=== PATIENT | female | born 1925 | race Caucasian/White ===

== ENCOUNTER 2016-10-11 10:56 | Inpatient (IN) | payer MEDICARE ==
[~2016-10-11] VITALS: Ht 160 cm; Wt 46.1 kg
[~2016-10-11 10:56] MED LIST: /ESOM40CA OR; /WARF25TA OR; ACET65TA OR; ADV250INH INH; ARTI99.0 OU; ARTISOL10 OU; ASPI1TAB PO; ASPI81TA85 PO; B 12 INJECTION PO; BIOT10005 PO; CALCTAB93 PO; CALTTAB10 PO; CART120C PO; CELE10TA PO; DOXY100C PO; DRIS50002 PO; FEXO60CA PO; FISH1000 PO; HYDR12.55 PO; LEVO125T3 PO; LEVO500T32 PO; LOSA100T36 PO; META28.35 PO; MOME50SP; MOME50SP2; NETI1KIT; NEXIUM 40 MG PO; OCUVITE PO; OCUVTAB PO; OMEP40CA2 PO; OYST500T OR; PERC5TAB8 OR; PRED20TA PO; PRESCAP4 PO; PRESCAP6 PO; REST0.05 OU; SIMB1SUS OS; SYNTHROID PO; SYSTSOL11 OU; TRAV0.006 OP; TRAV0.006 OU; TRAV04OPD OU; TRAVATAN OD; TYLE325T5 PO; VITA100027 OR; VITA100066 PO; VITA100072 PO; VITA400T13 PO; VITAMIN D50000 UNT OR; ZOFR20TA PO; occuvite OR; travatan OU
[2016-10-11] MEDS ORDERED: FISH100049 PO (11:28)
[2016-10-11] MEDS ORDERED: SIMB1SUS OU (11:28)
[2016-10-11] MEDS ORDERED: OCUVTAB PO (11:28)
[2016-10-11] MEDS ORDERED: TORS20TA2 PO (11:28)
[2016-10-11] MEDS ORDERED: TRAV04OPD OU (11:28)
--- NOTE | 2016-10-11 11:48 | REP ---
Clinical: Syncope. Comparison: 04/29/2016 . Findings: There is a scalp hematoma overlies the left frontal bone. There is partial opacification and fluid in the right maxillary sinus along with emphysema in the right magento web developer space consistent with trauma. Subtle nondisplaced fracture along the right lateral orbital wall is suggested. Age-related atrophy and microvascular ischemic changes are appreciated. The ventricles and sulci are symmetric. Maya-white differentiation is maintained. There is no evidence for acute intracranial hemorrhage, mass/mass effect, pathology or infarction. No extra-axial fluid collection. Calvarium is intact. Impression: 1. Left frontal scalp hematoma and post traumatic changes involving the right side of the face including fluid, emphysema, and possible nondisplaced acute fracture involving the right lateral orbital wall. 2. Age related atrophy and microvascular ischemic changes. 3. No acute intracranial hemorrhage, infarction, or mass/mass effect. Signed by Aron Bermudez MD 10/11/2016 11:40 A
--- NOTE | 2016-10-11 11:51 | REP ---
Clinical: Syncope . Technique: Axial noncontrast images from the skull base to the thoracic inlet with coronal and sagittal re-formations Findings: Age related osteopenia and advanced multilevel degenerative disc osteophyte complexes are noted. Normal alignment is maintained. Cervical vertebral bodies including transverse processes and spinous processes are intact and there is no evidence for acute fracture / compression injury or subluxation. Spinal canal is patent. Posterior elements are intact. Paravertebral soft tissues are normal. Impression: Osteopenia and multilevel degenerative changes. No acute fracture / compression injury or subluxation. Signed by Aron Bermudez MD 10/11/2016 11:43 A
[2016-10-11 12:20] LABS: BASO % 0.2 % (0.0-1.0); EOS % 0.4 % (0.0-3.0); LARGE UNSTAINED CELL # 0.1 K/mm3 (0.0-0.4); LARGE UNSTAINED CELL % 1.6 % (0.0-4.0); LYMPH # 0.7 K/mm3 (1.5-4.5); MEAN CORPUSCULAR HEMOGLOBIN 31.8 pg (27.0-33.0); MEAN CORPUSCULAR VOLUME 93.6 fl (80.0-96.0); MONO # 0.4 K/mm3 (0.0-0.8); MONO % 6.1 % (0.0-5.0); NEUTROPHILS # 5.5 K/mm3 (1.8-7.7); NEUTROPHILS % 81.7 % (36.0-66.0); PLATELET COUNT, AUTOMATED 312 k/mm3 (150-450); RED CELL DISTRIBUTION WIDTH 12.1 % (11.5-14.5); WHITE BLOOD COUNT 6.7 K/mm3 (4.0-10.0)
[2016-10-11 12:30] LABS: ANION GAP 8 MEQ/L (8-16); BLOOD UREA NITROGEN 15 MG/DL (7-18); CALCIUM LEVEL 8.1 MG/DL (8.8-10.2); CARBON DIOXIDE LEVEL 29 MEQ/L (21-32); CHLORIDE LEVEL 93 MEQ/L (98-107); CREATININE FOR GFR 0.71 MG/DL (0.55-1.02); GLOMERULAR FILTRATION RATE > 60.0 (>32); GLUCOSE, FASTING 99 MG/DL (83-110); MAGNESIUM LEVEL 1.9 MG/DL (1.8-2.4); POTASSIUM SERUM 4.1 MEQ/L (3.5-5.1); SODIUM LEVEL 130 MEQ/L (136-145)
--- NOTE | 2016-10-11 12:34 | REP ---
Clinical: Trauma. Technique: Axial images from the mid skull through the mandible with coronal and sagittal re-formations. Findings: Right facial and right periorbital traumatic infiltration and soft tissue swelling is appreciated. There is a moderate amount of fluid in the right maxillary sinus as well as emphysema in the right collar folder operator space. There is a nondisplaced fracture along the lateral wall of the right orbit as well as fractures involving the anterior and posterolateral kahn of the right maxillary sinus. The nasal bones, zygomatic arches, and mandible are intact. No other fracture or dislocation is appreciated. Mild traumatic proptosis to the right lobe is suggested without further orbital trauma/injury identified. There is a moderate scalp hematoma overlying the left frontal bone. No obvious intracranial trauma is identified on current images. Impression: Right facial traumatic infiltration. Left scalp hematoma. Fractures involving the lateral wall of the right orbit and anterior and posterolateral kahn of the right maxillary sinus with associated moderate traumatic fluid in the right maxillary sinus. Signed by Aron Bermudez MD 10/11/2016 12:26 P
--- NOTE | 2016-10-11 12:41 | REP ---
Clinical: Syncope. Trauma. Technique: Portable examination. Comparison: 05/24/2016. Findings: Mediastinum and cardiac silhouette are within normal limits. Lung platt demonstrate chronic stable changes. No acute consolidation, effusion, or pneumothorax. Skeletal structures demonstrate osteopenia and degenerative changes. Impression: Chronic stable changes. No acute cardiopulmonary process. Signed by Aron Bermudez MD 10/11/2016 12:33 P
[2016-10-11] MEDS ORDERED: ACETAMINOPHEN TAB 650MG DOSE (2X325MG) PO ONE (12:45)
[2016-10-11] MEDS ORDERED: META48.54 PO (14:11)
[2016-10-11] MEDS ORDERED: ONDANSETRON 4MG/2ML VIAL (J2405) IV PRN (14:45)
--- NOTE | 2016-10-11 14:58 | HPEPDOC ---
General Date of Admission 10/11/16 Chief Complaint The patient is a 89-year-old female admitted with a reason for visit of Head Injury; Unknown Loc. History of Present Illness 89-year-old female with past medical history of hypertension and hypothyroidism was brought to the ER by EMS after the patient had a syncopal episode at home. According to the patient, she was on the toilet having a bowel movement when she felt a sensation of nausea. She reports that she subsequently remembers falling to the floor. She denies any symptoms of chest pain, palpitations, abdominal pain, or any diaphoresis leading up to this moment. She states that when she woke up the EMS had arrived. At baseline, the patient states that she is functionally independent and able to complete all activities of daily living independently, as well as drive. She does note that she has been having 2-3 loose stools a day for the last 5 days, for which she took Imodium for. She otherwise denies any other focal complaints of fevers, chills, shortness of breath, cough, or any vomiting. In the ER, a CT scan of the head Revealed a left frontal scalp hematoma and post traumatic changes involving the right side of the face. Follow-up maxillofacial CT revealed fractures involving the lateral wall of the right orbital and anterior and posterolateral wall of the right maxillary sinus with moderate traumatic fluid in the right maxillary sinus. Dr. Garcia of ENT was contacted in the ER regarding these findings, and he has recommended that the patient follow-up in one week as an outpatient with ENT for further evaluation. At this time, the patient will be admitted to the hospitalist service under Dr. Tyson for further evaluation and management of syncope. Home Medications Scheduled (Preservision Areds 2) 1 Cap Cap 2 CAP PO DAILY (Reported) (Simbrinza 1-0.2 %) 1 Jazlyn Jazlyn 1 JAZLYN OU BID (Reported) Aspirin (Aspirin 81) 81 Mg Tab 81 MG PO DAILY (Reported) Cholecalciferol (Vitamin D) 1,000 Unit Tab 2,000 UNIT PO DAILY (Reported) Cyanocobalamin (Vitamin B12) 1,000 Mcg Tab 1,000 MCG PO DAILY (Reported) Fish Oil (Fish Oil 1000 mg) 1 Cap Cap 1 CAP PO DAILY (Reported) Levothyroxine Sodium (Synthroid) 125 Mcg Tab 125 MCG PO 6XWK (Reported) TAKES EVERYDAY EXCEPT SUNDAYS Losartan Potassium (Losartan Potassium) 100 Mg Tab 100 MG PO DAILY (Reported) Mometasone Furoate Monohydrate (Nasonex) 120 [place]/17 Gm Naspr 2 SPRAY NA BID ( Reported) Psyllium (Metamucil) 48.57 % Pow 1 PKT PO DAILY (Reported) Torsemide (Torsemide) 20 Mg Tab 20 MG PO DAILY (Reported) Travoprost (Travatan Z) 50 Drop/2.5 Ml Soln 1 DROP OU QHS (Reported) Scheduled PRN Artificial Tears (Artificial Tears) 1.4 % Taylor 1 DROP OU QID PRN PRN DRY EYES ( Reported) Allergies Coded Allergies: Levofloxacin (Verified Allergy, Severe, seizure, 09/12/15) Penicillins (Verified Allergy, Severe, SWELLING, 10/18/12) Penicillins Cross Reactors (Verified Allergy, Severe, SWELLING, 10/18/12) Erythromycin (Unverified Allergy, Unknown, 08/31/14) Iodine (Unverified Allergy, Unknown, 08/31/14) Metoclopramide (Verified Adverse Reaction, Mild, HEADACHE, 10/18/12) Propoxyphene (Verified Adverse Reaction, Mild, HEADACHE, 10/18/12) Past Medical History Medical History As noted in HPI. Surgical History Right knee replacement, bowel resection 15 years ago for diverticulitis Family History Significant Family History: No pertinent family hx Social History * Smoker: Denies Alcohol: Denies Drugs: denies Lives at home by herself, has 1 dog. He is functionally independent, and is even able to drive. She ambulates with assistance of a 4-point cane. Review of Symptoms Other systems 10 point review of systems is negative unless otherwise specified in HPI. Physical Examination General Exam: Positive: Alert, Cooperative, No Acute Distress Eye Exam: Positive: EOMI, PERRLA, Negative: Ptosis ENT Exam: Positive: Other ENT (patient noted to have a left scalp hematoma, and bruising noted in the bilateral eyelids. Mild tenderness to palpation noted along the right maxillary surface. Patient also noted to have a contusion on the left side of the head near the crown area. No active bleeding noted.) Neck Exam: Negative: JVD Chest Exam: Positive: Clear to auscultation, Normal air movement Heart Exam: Positive: Normal S1, Normal S2, Rate Normal Telemetry: Positive: No significant arrhythmia, Sinus Abdomen Exam: Positive: Soft, Negative: Tenderness Extremity Exam: Negative: Swelling, Tenderness Neuro Exam: Positive: Cranial Nerves 3-12 NL, Normal Speech, Sensation Intact, Strength at 5/5 X4 ext Vital Signs As noted in the EMR. Laboratory Data Labs 24H Laboratory Tests 2 10/11/16 12:00: Bedside Glucose (Misc Panel) 103 10/11/16 12:01: Anion Gap 8, White Blood Count 6.7, Red Blood Count 3.83L, Hemoglobin 12.2, Hematocrit 35.9L, Mean Corpuscular Volume 93.6, Mean Corpuscular Hemoglobin 31.8 , Mean Corpuscular Hemoglobin Concent 34.0, Red Cell Distribution Width 12.1, Platelet Count 312, Neutrophils (%) (Auto) 81.7H, Lymphocytes (%) (Auto) 10.0L, Monocytes (%) (Auto) 6.1H, Eosinophils (%) (Auto) 0.4, Basophils (%) (Auto) 0.2 , Neutrophils # (Auto) 5.5, Lymphocytes # (Auto) 0.7L, Monocytes # (Auto) 0.4, Eosinophils # (Auto) 0.0, Basophils # (Auto) 0.0, Blood Urea Nitrogen 15, Creatinine 0.71, Sodium Level 130L, Potassium Level 4.1, Chloride Level 93L, Carbon Dioxide Level 29, Calcium Level 8.1L, Glomerular Filtration Rate > 60.0, Large Unclassified Cells # 0.1, Large Unclassified Cells % 1.6, Magnesium Level 1.9 10/11/16 12:26: Urine Amorphous Sediment , Urine Appearance CLEAR, Urine Color STRAW, Urine pH 7.0, Urine Specific [place] 1.004, Urine Protein NEGATIVE, Urine Glucose (UA) NEGATIVE, Urine Ketones NEGATIVE, Urine Urobilinogen 0.2, Urine Bilirubin NEGATIVE, Urine Leukocyte Esterase NEGATIVE, Urine Bacteria (Auto) NEGATIVE, Urine Blood NEGATIVE, Urine Calcium Carbonate Cryst(Auto) , Urine Calcium Oxalate Cryst (Auto) , Urine Calcium Phosphate Cierra (Auto) , Urine Cellular Casts , Urine Cystine Crystals , Urine Granular Casts (Auto) , Urine Hyaline Casts (Auto) 0, Urine Leucine Crystals , Urine Mucus (Auto) , Urine Nitrite NEGATIVE, Urine Oval Fat Bodies (Auto) , Urine RBC (Auto) 1, Urine Renal Epithelial Cells , Urine Sperm (Auto) , Urine Squamous Epithelial Cells 0, Urine Transitional Epithelial Cells , Urine Trichomonas (Auto) , Urine Triple Phosphate Cryst (Auto) , Urine Tyrosine Crystals , Urine Uric Acid Crystals ( Auto) , Urine WBC (Auto) 1, Urine Waxy Casts (Auto) , Urine Yeast-Like Cells ( Auto) CBC/BMP Laboratory Tests 10/11/16 12:01 Calcium Level 8.1 L, Red Blood Count 3.83 L, Mean Corpuscular Volume 93.6, Mean Corpuscular Hemoglobin 31.8, Mean Corpuscular Hemoglobin Concent 34.0, Red Cell Distribution Width 12.1, Neutrophils (%) (Auto) 81.7 H, Lymphocytes (%) (Auto) 10.0 L, Monocytes (%) (Auto) 6.1 H, Eosinophils (%) (Auto) 0.4, Basophils (%) ( Auto) 0.2, Neutrophils # (Auto) 5.5, Lymphocytes # (Auto) 0.7 L, Monocytes # ( Auto) 0.4, Eosinophils # (Auto) 0.0, Basophils # (Auto) 0.0 Microbiology Microbiology 10/11/16 Urine Culture, Received Pending Plan / VTE VTE Prophylaxis Ordered?: Yes Plan Plan Syncope likely secondary to vasovagal episode Will admit to PCU for monitoring on telemetry EKG with no acute changes noted Troponins pending 2-D echocardiogram ordered We'll continue to monitor the patient on telemetry Status post fall, fracture of the right orbit CT scan of the head, maxillofacial CT findings noted Dr. Yanez of ENT contacted in the ER, he has recommended Afrin for nasal congestion, and for the patient to follow-up as an outpatient with ENT in one week for further evaluation. Physical therapy eval ordered Diarrhea States that she has been having 2-3 episodes a day Likely viral in etiology Patient has not had any antibiotics over the last 3 months We will order GI panel Low suspicion for C. difficile Continue supportive treatment Hypertension Continue losartan Hypothyroidism Continue levothyroxine DVT prophylaxis-TEDs ordered The patient will be admitted under the service of , who will begin to follow the patient on 10/12. JOHAN MORGAN MD Oct 11, 2016 14:58 JOHAN MORGAN MD Oct 11, 2016 14:58
[2016-10-11 16:15] VITALS: BP 168/80
[2016-10-11] MEDS: ACETAMINOPHEN TAB 650MG DOSE (2X325MG) PO PRN ×2 (17:28→23:40)
--- NOTE | 2016-10-11 19:49 | ECGEPIP ---
Stationary ECG Study [facility] - ED Test Date: 2016-10-11 Pat Name: TIARA HARRIS Department: Room: - Gender: F Campaign Assistant: rn : [id number] Requested By: TIARA Rose Order Number: [id number] Reading MD: Latanya Emery Measurements Intervals [place] Rate: 82 P: 74 VT: 193 QRS: 17 QRSD: 77 T: 52 QT: 347 QTc: 407 Interpretive Statements SINUS RHYTHM ANTEROSEPTAL MYOCARDIAL INFARCTION, OF INDETERMINATE AGE NSTTW ABNORMALITY INCREASED RATE 04/29/16 Electronically Signed On 10-11-2016 19:49:14 EDT by Latanya Emery
[2016-10-11 20:00] VITALS: BP 160/80
[2016-10-11] MEDS ORDERED: amLODIPine 5 MG TAB PO ONE (20:15)
[2016-10-11] MEDS: FLUTICASONE PROP 0.05% NASAL SPRAY 16 GM (FLONASE) SCH (20:33)
[2016-10-11] MEDS: OXYMETAZOLINE NASAL SPRAY (AFRIN) SCH (20:33)
[2016-10-11 21:29] VITALS: BP 154/78
[2016-10-11 23:59] VITALS: BP 142/63
[2016-10-12] VITALS (7 sets, daily range): BP systolic 100–170; BP diastolic 52–74
[2016-10-12 05:19] LABS: MEAN CORPUSCULAR HEMOGLOBIN 32.2 pg (27.0-33.0); MEAN CORPUSCULAR HGB CONC 34.6 g/dl (32.0-36.5); MEAN CORPUSCULAR VOLUME 93.3 fl (80.0-96.0); RED CELL DISTRIBUTION WIDTH 12.1 % (11.5-14.5); WHITE BLOOD COUNT 6.2 K/mm3 (4.0-10.0)
[2016-10-12 05:37] LABS: ANION GAP 8 MEQ/L (8-16); BLOOD UREA NITROGEN 15 MG/DL (7-18); CALCIUM LEVEL 8.5 MG/DL (8.8-10.2); CARBON DIOXIDE LEVEL 30 MEQ/L (21-32); CHLORIDE LEVEL 96 MEQ/L (98-107); CREATININE FOR GFR 0.72 MG/DL (0.55-1.02); GLOMERULAR FILTRATION RATE > 60.0 (>32); GLUCOSE, FASTING 90 MG/DL (83-110); MAGNESIUM LEVEL 2.1 MG/DL (1.8-2.4); POTASSIUM SERUM 3.8 MEQ/L (3.5-5.1); SODIUM LEVEL 134 MEQ/L (136-145)
[2016-10-12] MEDS: LOSARTAN 50 MG TAB PO SCH ×3 (09:00→20:16)
[2016-10-12] MEDS: CYANOCOBALAMIN 500 MCG TAB PO SCH (09:07)
[2016-10-12] MEDS: VITAMIN D 1,000 INTERNATIONAL UNITS TABLET PO SCH (09:07)
[2016-10-12] MEDS: TORSEMIDE 20 MG TAB PO SCH (09:07)
[2016-10-12] MEDS: OXYMETAZOLINE NASAL SPRAY (AFRIN) SCH ×2 (09:08→20:17)
[2016-10-12] MEDS: FLUTICASONE PROP 0.05% NASAL SPRAY 16 GM (FLONASE) SCH ×2 (09:08→20:17)
[2016-10-12] MEDS: ACETAMINOPHEN TAB 650MG DOSE (2X325MG) PO PRN ×2 (09:09→20:22)
--- NOTE | 2016-10-12 09:59 | IPNPDOC ---
Subjective Date Seen The patient was seen on 10/12/16. Subjective Chief Complaint/HPI The patient is a 89-year-old female admitted with a reason for visit of Syncope. General: Denies: Chills, Fatigue, Malaise, Night Sweats, Normal Appetite, Other Symptoms, ROS Unobtainable Constitutional: Denies: Chills, Fatigue, Fever, Lethargy, Malaise, Night Sweats , Other, Weakness, Weight Loss Eyes: Denies: Conjunctivae inflammation, Eyelid inflammation, Other, Pain, Redness, Vision change ENT: Denies: Dysphagia, Ear Pain, Epistaxis, Head Aches, Other Symptoms, Post Nasal Drip, Sinus Congestion, Sore Throat Skin: Denies: Breakdown, Bruising, Dry, Itching, Jaundice, Lesions, Nail Changes, Other, Rash Pulmonary: Denies: Cough, Dyspnea, Other Symptoms, Pleuritic Chest Pain Cardiovascular: Denies: Chest Pain, Edema, Lt Headedness, Orthopnea, Other Symptoms, Palpitations, Paroxysmal Noc. Dyspnea Gastrointestinal: Denies: Abdominal Pain, Constipation, Diarrhea, Hematochezia , Melena, Nausea, Other Symptoms, Vomiting Genitourinary: Denies: Dysuria, Frequency, Hematuria, Incontinence, Other Symptoms, Retention Objective Physical Examination General Exam: Positive: Alert, Cooperative, No Acute Distress, Other (elderly, frail) Eye Exam: Positive: EOMI, PERRLA, Negative: Ptosis ENT Exam: Positive: Other ENT (patient noted to have a left scalp hematoma, and bruising noted in the bilateral eyelids. Mild tenderness to palpation noted along the right maxillary surface. Patient also noted to have a contusion on the left side of the head near the crown area. No active bleeding noted.) Neck Exam: Negative: JVD Chest Exam: Positive: Clear to auscultation, Normal air movement Heart Exam: Positive: Normal S1, Normal S2, Rate Normal Telemetry: Positive: No significant arrhythmia, Sinus Abdomen Exam: Positive: Soft, Negative: Tenderness Extremity Exam: Negative: Swelling, Tenderness Neuro Exam: Positive: Normal Speech, Sensation Intact, Strength at 5/5 X4 ext Psych Exam: Positive: Oriented x 3 Assessment /Plan Problems (1) Syncope Status: Acute Discussed With: Patient Problem Specific Plan: Monitor Clinically, Repeat Labs, Repeat Tests Problem Text: Unclear etiology, likely vasovagal. States had a syncopal episode last summer while in her backyard. 2D echo pending. check orthostatics. (2) Fall Status: Acute Discussed With: Patient Problem Specific Plan: Monitor Clinically, Repeat Labs, Repeat Tests Problem Text: As per above secondary to syncope. Head trauma. CT head no acute pathology. Patient states had a fall last summer, with syncope. (3) Maxillary fracture Status: Acute Discussed With: Patient Problem Specific Plan: Consult Specialist, Monitor Clinically Problem Text: As per above for fall. ENT consulted, recommending o/p follow up in one week, Tod. (4) Diarrhea Status: Acute Response to Treatment: Improving Discussed With: Patient Problem Specific Plan: Monitor Clinically, Repeat Labs Problem Text: Check GI panel. Stool lactoferrin. (5) Hypothyroidism Status: Chronic Discussed With: Patient Problem Specific Plan: Monitor Clinically, Repeat Labs Problem Text: TSH WNL. Continue synthroid (6) Hypertension Status: Chronic Problem Specific Plan: Monitor Clinically Problem Text: Continue cozaar, demadex Plan/VTE VTE Prophylaxis Ordered?: Yes (mechanical prophylaxis) Plan Diet: Continue Current Activity: Continue Current Therapy: PT, OT Diagnostics: Repeat Labs in AM, TTE Further discussion later today with patient and son at bedside. Apparently she has been having episodes of dizziness for the last several months. States sometimes can last all day for several days, sometimes an entire week without any episodes. Also notes has had difficulty controlling blood pressures, with episodes of uncontrolled hypertension and hypotension. VS, I&O, 24H, [facility] Vital Signs/I&O Vital Signs Date Time Temp Pulse Resp B/P Pulse Ox O2 Delivery O2 Flow Rate FiO2 10/12/16 08:00 99.2 86 20 167/73 97 Room Air I&O- Last 24 Hours up to 6 AM 10/12/16 06:00 Intake Total 360 ml Output Total 1550 ml Balance -1190 ml Laboratory Data 24H LABS Laboratory Tests 2 10/11/16 12:00: Bedside Glucose (Misc Panel) 103 10/11/16 12:01: Anion Gap 8, White Blood Count 6.7, Red Blood Count 3.83L, Hemoglobin 12.2, Hematocrit 35.9L, Mean Corpuscular Volume 93.6, Mean Corpuscular Hemoglobin 31.8 , Mean Corpuscular Hemoglobin Concent 34.0, Red Cell Distribution Width 12.1, Platelet Count 312, Neutrophils (%) (Auto) 81.7H, Lymphocytes (%) (Auto) 10.0L, Monocytes (%) (Auto) 6.1H, Eosinophils (%) (Auto) 0.4, Basophils (%) (Auto) 0.2 , Neutrophils # (Auto) 5.5, Lymphocytes # (Auto) 0.7L, Monocytes # (Auto) 0.4, Eosinophils # (Auto) 0.0, Basophils # (Auto) 0.0, Blood Urea Nitrogen 15, Creatinine 0.71, Sodium Level 130L, Potassium Level 4.1, Chloride Level 93L, Carbon Dioxide Level 29, Calcium Level 8.1L, Glomerular Filtration Rate > 60.0, Large Unclassified Cells # 0.1, Large Unclassified Cells % 1.6, Magnesium Level 1.9, Troponin I < 0.02 10/11/16 12:26: Urine Amorphous Sediment , Urine Appearance CLEAR, Urine Color STRAW, Urine pH 7.0, Urine Specific [place] 1.004, Urine Protein NEGATIVE, Urine Glucose (UA) NEGATIVE, Urine Ketones NEGATIVE, Urine Urobilinogen 0.2, Urine Bilirubin NEGATIVE, Urine Leukocyte Esterase NEGATIVE, Urine Bacteria (Auto) NEGATIVE, Urine Blood NEGATIVE, Urine Calcium Carbonate Cryst(Auto) , Urine Calcium Oxalate Cryst (Auto) , Urine Calcium Phosphate [place]ierra (Auto) , Urine Cellular Casts , Urine Cystine Crystals , Urine Granular Casts (Auto) , Urine Hyaline Casts (Auto) 0, Urine Leucine Crystals , Urine Mucus (Auto) , Urine Nitrite NEGATIVE, Urine Oval Fat Bodies (Auto) , Urine RBC (Auto) 1, Urine Renal Epithelial Cells , Urine Sperm (Auto) , Urine Squamous Epithelial Cells 0, Urine Transitional Epithelial Cells , Urine Trichomonas (Auto) , Urine Triple Phosphate Cryst (Auto) , Urine Tyrosine Crystals , Urine Uric Acid Crystals ( Auto) , Urine WBC (Auto) 1, Urine Waxy Casts (Auto) , Urine Yeast-Like Cells ( Auto) 10/11/16 22:31: Troponin I < 0.02 10/12/16 04:43: Anion Gap 8, Blood Urea Nitrogen 15, Creatinine 0.72, Sodium Level 134L, Potassium Level 3.8, Chloride Level 96L, Carbon Dioxide Level 30, Calcium Level 8.5L, Glomerular Filtration Rate > 60.0, Magnesium Level 2.1, Thyroid Stimulating Hormone (TSH) 0.541, Troponin I < 0.02 CBC/BMP Laboratory Tests 10/11/16 12:01 Calcium Level 8.1 L, Red Blood Count 3.83 L, Mean Corpuscular Volume 93.6, Mean Corpuscular Hemoglobin 31.8, Mean Corpuscular Hemoglobin Concent 34.0, Red Cell Distribution Width 12.1, Neutrophils (%) (Auto) 81.7 H, Lymphocytes (%) (Auto) 10.0 L, Monocytes (%) (Auto) 6.1 H, Eosinophils (%) (Auto) 0.4, Basophils (%) ( Auto) 0.2, Neutrophils # (Auto) 5.5, Lymphocytes # (Auto) 0.7 L, Monocytes # ( Auto) 0.4, Eosinophils # (Auto) 0.0, Basophils # (Auto) 0.0 10/12/16 04:43 Calcium Level 8.5 L, Red Blood Count 3.66 L, Mean Corpuscular Volume 93.3, Mean Corpuscular Hemoglobin 32.2, Mean Corpuscular Hemoglobin Concent 34.6, Red Cell Distribution Width 12.1 Microbiology Microbiology 10/12/16 Blood Culture, Received Pending 10/12/16 Blood Culture, Received Pending 10/11/16 Urine Culture - Final, Complete LAKEISHA FULLER MD Oct 12, 2016 09:59
[2016-10-12] MEDS ORDERED: SLF 3 ML SYR IV PRN (23:15)
[2016-10-13] VITALS (9 sets, daily range): BP systolic 109–164; BP diastolic 54–81
[2016-10-13] MEDS: SLF 3 ML SYR IV SCH ×3 (05:15→20:03)
[2016-10-13] MEDS: LEVOTHYROXINE 0.125 MG TAB (125 MCG) PO SCH (05:15)
[2016-10-13 05:29] LABS: MEAN CORPUSCULAR HGB CONC 34.3 g/dl (32.0-36.5); MEAN CORPUSCULAR VOLUME 93.1 fl (80.0-96.0); RED CELL DISTRIBUTION WIDTH 12.2 % (11.5-14.5); WHITE BLOOD COUNT 4.6 K/mm3 (4.0-10.0)
[2016-10-13 05:37] LABS: ANION GAP 9 MEQ/L (8-16); BLOOD UREA NITROGEN 13 MG/DL (7-18); CALCIUM LEVEL 7.9 MG/DL (8.8-10.2); CARBON DIOXIDE LEVEL 26 MEQ/L (21-32); CHLORIDE LEVEL 100 MEQ/L (98-107); CREATININE FOR GFR 0.52 MG/DL (0.55-1.02); GLOMERULAR FILTRATION RATE > 60.0 (>32); GLUCOSE, FASTING 86 MG/DL (83-110); POTASSIUM SERUM 3.5 MEQ/L (3.5-5.1); SODIUM LEVEL 135 MEQ/L (136-145)
[2016-10-13] MEDS: OXYMETAZOLINE NASAL SPRAY (AFRIN) SCH ×2 (08:57→20:04)
[2016-10-13] MEDS: CYANOCOBALAMIN 500 MCG TAB PO SCH (08:57)
[2016-10-13] MEDS: VITAMIN D 1,000 INTERNATIONAL UNITS TABLET PO SCH (08:57)
[2016-10-13] MEDS: TORSEMIDE 20 MG TAB PO SCH (08:57)
[2016-10-13] MEDS: FLUTICASONE PROP 0.05% NASAL SPRAY 16 GM (FLONASE) SCH ×2 (08:58→20:04)
[2016-10-13] MEDS: ACETAMINOPHEN TAB 650MG DOSE (2X325MG) PO PRN (09:55)
--- NOTE | 2016-10-13 11:00 | IPNPDOC ---
Subjective Date Seen The patient was seen on 10/13/16. Subjective Chief Complaint/HPI The patient is a 89-year-old female admitted with a reason for visit of Syncope. General: Denies: Chills, Fatigue, Malaise, Night Sweats, Normal Appetite, Other Symptoms, ROS Unobtainable Constitutional: Denies: Chills, Fatigue, Fever, Lethargy, Malaise, Night Sweats , Other, Weakness, Weight Loss Eyes: Denies: Conjunctivae inflammation, Eyelid inflammation, Other, Pain, Redness, Vision change ENT: Denies: Dysphagia, Ear Pain, Epistaxis, Head Aches, Other Symptoms, Post Nasal Drip, Sinus Congestion, Sore Throat Skin: Denies: Breakdown, Bruising, Dry, Itching, Jaundice, Lesions, Nail Changes, Other, Rash Pulmonary: Denies: Cough, Dyspnea, Other Symptoms, Pleuritic Chest Pain Cardiovascular: Denies: Chest Pain, Edema, Lt Headedness, Orthopnea, Other Symptoms, Palpitations, Paroxysmal Noc. Dyspnea Gastrointestinal: Denies: Abdominal Pain, Constipation, Diarrhea, Hematochezia , Melena, Nausea, Other Symptoms, Vomiting Genitourinary: Denies: Dysuria, Frequency, Hematuria, Incontinence, Other Symptoms, Retention Hematologic: Denies: Bleeding Excessively, Bruising, Enlarged Lymph Nodes, Other Hematologic, Petecchia, Purpura Objective Physical Examination General Exam: Positive: Alert, Cooperative, No Acute Distress, Other (elderly, frail) Eye Exam: Positive: EOMI, PERRLA, Negative: Ptosis ENT Exam: Positive: Atraumatic, Other ENT (patient noted to have a left scalp hematoma, and bruising noted in the bilateral eyelids. Mild tenderness to palpation noted along the right maxillary surface. Patient also noted to have a contusion on the left side of the head near the crown area. No active bleeding noted.) Neck Exam: Negative: JVD Chest Exam: Positive: Clear to auscultation, Normal air movement Heart Exam: Positive: Normal S1, Normal S2, Rate Normal Telemetry: Positive: No significant arrhythmia, Sinus Abdomen Exam: Positive: Normal bowel sounds, Soft, Negative: Tenderness Extremity Exam: Negative: Edema, Swelling, Tenderness Neuro Exam: Positive: Normal Speech, Sensation Intact Psych Exam: Positive: Oriented x 3 Assessment /Plan Problems (1) Syncope Status: Acute Discussed With: Patient Problem Specific Plan: Monitor Clinically, Repeat Labs, Repeat Tests Problem Text: Unclear etiology. had a syncopal episode last summer while in her backyard. 2D echo pending report. EEG pending. orthostatic borderline abnormal today. (2) Fall Status: Acute Discussed With: Patient Problem Specific Plan: Monitor Clinically, Repeat Labs, Repeat Tests Problem Text: As per above secondary to syncope. Head trauma. CT head no acute pathology. Patient states had a fall last summer, with syncope. Failed PT, continue treatment. (3) Maxillary fracture Status: Acute Discussed With: Patient Problem Specific Plan: Consult Specialist, Monitor Clinically Problem Text: As per above for fall. ENT consulted, recommending o/p follow up in one week, Tod. (4) Diarrhea Status: Acute Response to Treatment: Improving Discussed With: Patient Problem Specific Plan: Monitor Clinically, Repeat Labs Problem Text: Resolved. (5) Hypothyroidism Status: Chronic Discussed With: Patient Problem Specific Plan: Monitor Clinically, Repeat Labs Problem Text: TSH WNL. Continue synthroid (6) Hypertension Status: Chronic Problem Specific Plan: Monitor Clinically Problem Text: Continue cozaar, demadex. Patient states has had issues controlling her hypertension in the past. To discuss further with PCP Dr. Franklin today. Borderline orthostatics noted. Plan/VTE VTE Prophylaxis Ordered?: Yes (mechanical prophylaxis) Plan Diet: Continue Current Activity: Continue Current Therapy: PT, OT Diagnostics: Repeat Labs in AM, TTE, Other Diagnostics (EEG) Anticipated Discharge: Home, Home With Services Borderline orthostatic, continue telemetry monitoring, pending EEG and report for TTE. To discuss further management regarding blood pressure with her PCP, otherwise would consider discontinuing demedex and transitioning to alternative anti-hypertensive. Disposition Home with services likely. Son states they are in the process of making changes to his home for his mother to come live with him. VS, I&O, 24H, Fishbone Vital Signs/I&O Vital Signs Date Time Temp Pulse Resp B/P Pulse Ox O2 Delivery O2 Flow Rate FiO2 10/13/16 08:00 98.6 78 18 138/65 98 Room Air I&O- Last 24 Hours up to 6 AM 10/13/16 06:00 Intake Total 1080 ml Output Total 1925 ml Balance -845 ml Laboratory Data 24H LABS Laboratory Tests 2 10/13/16 05:02: Anion Gap 9, Blood Urea Nitrogen 13, Creatinine 0.52L, Sodium Level 135L, Potassium Level 3.5, Chloride Level 100, Carbon Dioxide Level 26, Calcium Level 7.9L, Glomerular Filtration Rate > 60.0 CBC/BMP Laboratory Tests 10/13/16 05:02 Calcium Level 7.9 L, Red Blood Count 3.29 L, Mean Corpuscular Volume 93.1, Mean Corpuscular Hemoglobin 32.0, Mean Corpuscular Hemoglobin Concent 34.3, Red Cell Distribution Width 12.2 Microbiology Microbiology 10/12/16 Blood Culture - Preliminary, Resulted No growth after 24 hours . All specim... 10/12/16 Blood Culture - Preliminary, Resulted No growth after 24 hours . All specim... 10/11/16 Urine Culture - Final, Complete LAKEISHA FULLER MD Oct 13, 2016 11:00
--- NOTE | 2016-10-13 13:49 | ECHO ---
DATE OF PROCEDURE: 10/12/2016 REFERRING PHYSICIAN: Dr. Cory Dimas INDICATION: Syncope. HEIGHT: 63 inches WEIGHT: 99 pounds 2D MEASUREMENTS: Aortic root: 3.1 cm Proximal ascending aorta: 3.1 cm Left atrium: 3.3 cm Ventricular septum: 0.75 cm Posterior wall: 0.83 cm Left ventricle diastole: 3.4 cm Left ventricle systole: 2.4 cm Right ventricle: 3.3 cm Inferior vena cava: 1.6 cm DOPPLER MEASUREMENTS: Mild aortic regurgitation. No aortic stenosis. Aortic valve velocity: 118 cm/s LVOT velocity: 140 cm/s LVOT VTI: 30.1 cm Mild mitral regurgitation. Mild mitral stenosis. Mitral valve area (Hatle pressure half-time method): 1.61 sq cm Mitral E velocity (continuous wave): 112 cm/s Mitral A velocity (continuous wave): 144 cm/s Mean aortic valve gradient: 33 mmHg Mitral pressure half-time: 137 ms Mitral E velocity (PW): 147 cm/s Mitral A velocity (PW): 140 cm/s Mitral deceleration time: 296 ms Very mild tricuspid regurgitation. Estimated right ventricular systolic pressure: 26-31 mmHg assuming a right atrial pressure of 5-10 mmHg Pulmonary artery systolic pressure: 24 mmHg by pulmonary acceleration time method MITRAL ANNULAR TISSUE DOPPLER: E prime lateral: 6.5 cm/s E prime septal: 5.3 cm/s DESCRIPTION: Rhythm was sinus. This was a moderately technically difficult echocardiogram. No pericardial effusion. This was a 2D, M-mode, color flow Doppler, and pulsed wave Doppler examination and included mitral annular tissue Doppler. CONCLUSIONS: 1. Normal left ventricle size and wall thickness. No regional wall motion abnormalities of the left ventricle. Normal left ventricular (LV) systolic function. Left ventricular ejection fraction (LVEF) 65% by visual estimate. Probable grade 1 LV diastolic dysfunction (impaired relaxation filling pattern). 2. Severe mitral annular calcification with mild mitral stenosis and mild mitral regurgitation. 3. Mild aortic valve sclerosis of a three-cusp aortic valve. Very mild aortic regurgitation. 4. Otherwise, normal echocardiogram Doppler.
[2016-10-13] MEDS: LOSARTAN 50 MG TAB PO SCH (20:04)
[2016-10-14 04:37] VITALS: BP_SYST 146; BP_SYST 149; BP_SYST 150; BP_DIAS 68; BP_DIAS 73; BP_DIAS 74
[2016-10-14 05:28] LABS: MEAN CORPUSCULAR HEMOGLOBIN 32.3 pg (27.0-33.0); MEAN CORPUSCULAR HGB CONC 34.2 g/dl (32.0-36.5); MEAN CORPUSCULAR VOLUME 94.3 fl (80.0-96.0); RED CELL DISTRIBUTION WIDTH 12.2 % (11.5-14.5); WHITE BLOOD COUNT 4.8 K/mm3 (4.0-10.0)
[2016-10-14] MEDS: LEVOTHYROXINE 0.125 MG TAB (125 MCG) PO SCH (05:39)
[2016-10-14] MEDS: SLF 3 ML SYR IV SCH ×3 (05:39→20:50)
[2016-10-14 05:46] LABS: ANION GAP 11 MEQ/L (8-16); BLOOD UREA NITROGEN 13 MG/DL (7-18); CALCIUM LEVEL 8.4 MG/DL (8.8-10.2); CARBON DIOXIDE LEVEL 25 MEQ/L (21-32); CHLORIDE LEVEL 102 MEQ/L (98-107); CREATININE FOR GFR 0.59 MG/DL (0.55-1.02); GLOMERULAR FILTRATION RATE > 60.0 (>32); GLUCOSE, FASTING 79 MG/DL (83-110); POTASSIUM SERUM 3.8 MEQ/L (3.5-5.1); SODIUM LEVEL 138 MEQ/L (136-145)
[2016-10-14 07:30] VITALS: BP 139/85
[2016-10-14] MEDS: VITAMIN D 1,000 INTERNATIONAL UNITS TABLET PO SCH (07:36)
[2016-10-14] MEDS: CYANOCOBALAMIN 500 MCG TAB PO SCH (07:36)
[2016-10-14] MEDS: TORSEMIDE 20 MG TAB PO SCH (07:37)
[2016-10-14] MEDS: OXYMETAZOLINE NASAL SPRAY (AFRIN) SCH ×2 (07:37→20:50)
[2016-10-14] MEDS: FLUTICASONE PROP 0.05% NASAL SPRAY 16 GM (FLONASE) SCH ×2 (07:37→20:50)
[2016-10-14] MEDS: ACETAMINOPHEN TAB 650MG DOSE (2X325MG) PO PRN ×2 (07:38→20:53)
[2016-10-14 11:50] VITALS: BP 131/63
[2016-10-14 16:00] VITALS: BP 155/70
--- NOTE | 2016-10-14 16:37 | IPN ---
DATE: 10/14/2016 Ms. Stevens is awake and appropriately interactive, eating breakfast upon my arrival. She has no complaints of pain, chest pain, is not particularly short of breath. Continues to be orthostatic with heart rate. VITAL SIGNS: Temperature is 98.2, pulse 69, respiratory rate 22, blood pressure 131/63, 99% on room air. I O notable for a positive fluid balance of 15, one bowel movement yesterday. BMI is 17.8. GENERAL: She is awake, appropriately interactive. Pleasantly conversant. Diffuse bruising on her faces, various stages of healing. NECK: Supple. Breathing symmetrical. I:E ratio is 1:3. HEART: Distant sounding, normal S1, S2. No significant arrhythmia on monitor, although within the last 24 hours has been up to 150 with activity. ABDOMEN: Soft, hyperactive bowel sounds. White cell count 4.8, hemoglobin 10.9, BUN 13, creatinine 0.6. MY ASSESSMENT IS FOLLOWS: 89-year-old with syncopal event. PLAN WILL BE FOLLOWS: 1. Patient experiencing syncope with fall, is orthostatic. 2D echocardiogram showed normal left ventricular ejection fraction and possible Stage 1 diastolic dysfunction. EEG is pending. I have asked Dr. Nash to see the patient in consultation. Patient is seen at their practice as an outpatient for headache, and patient has been experiencing headaches of late. 2. Patient has a maxillary fraction. Follow up with ENT in one week. Afrin has been ordered. 3. Patient has history of labile hypertension. I did discuss the case by phone with Dr. Franklin. I have discontinued her Demadex and cut her [id number] (ARB) in half. It is probably reasonable to accept a baseline higher level of blood pressure than normal given her history.
[2016-10-14 19:50] VITALS: BP 156/80
[2016-10-14] MEDS: LOSARTAN 50 MG TAB PO SCH (20:50)
[2016-10-15] VITALS (7 sets, daily range): BP systolic 96–158; BP diastolic 49–72
[2016-10-15] MEDS: ACETAMINOPHEN TAB 650MG DOSE (2X325MG) PO PRN ×3 (02:47→21:53)
[2016-10-15] MEDS: LEVOTHYROXINE 0.125 MG TAB (125 MCG) PO SCH (06:13)
[2016-10-15] MEDS: SLF 3 ML SYR IV SCH ×3 (06:14→22:00)
[2016-10-15 06:21] LABS: MEAN CORPUSCULAR HEMOGLOBIN 33.6 pg (27.0-33.0); MEAN CORPUSCULAR HGB CONC 35.4 g/dl (32.0-36.5); MEAN CORPUSCULAR VOLUME 94.7 fl (80.0-96.0); RED CELL DISTRIBUTION WIDTH 12.6 % (11.5-14.5); WHITE BLOOD COUNT 4.2 K/mm3 (4.0-10.0)
[2016-10-15 06:31] LABS: BLOOD UREA NITROGEN 14 MG/DL (7-18); CALCIUM LEVEL 8.1 MG/DL (8.8-10.2); CARBON DIOXIDE LEVEL 28 MEQ/L (21-32); CHLORIDE LEVEL 96 MEQ/L (98-107); CREATININE FOR GFR 0.67 MG/DL (0.55-1.02); GLUCOSE, FASTING 84 MG/DL (83-110)
[2016-10-15 06:36] LABS: ANION GAP 8 MEQ/L (8-16); POTASSIUM SERUM 4.3 MEQ/L (3.5-5.1); SODIUM LEVEL 132 MEQ/L (136-145)
--- NOTE | 2016-10-15 06:48 | EEG ---
DATE OF EE10/14/2016 REFERRING PHYSICIAN: Dr. Neeraj Tyson DIAGNOSIS: Seizure. EEG NUMBER: [id number]. HISTORY: The patient is an 89-year-old woman who was admitted at [facility] due to passing out spell after a bowel movement. She felt nausea and then remembers falling to the floor. This EEG was done to rule out epileptic potential. She is currently taking levothyroxine, torsemide, losartan, etc. TECHNICAL DESCRIPTION: This digital EEG was recorded by 21 scalp, ear and two EKG electrodes and was reviewed in bipolar and referential montages following reformatting in 10-20 international electrode placement system. INTERPRETATION: Patient was noted to be in awake and drowsy states during this EEG. Resting awake background rhythm consisted of 8-9 Hz alpha activity measuring 15-30 microvolts in amplitude, which was reactive to eye opening and was symmetric. Attenuation of posterior dominant rhythm was seen during transition into drowsiness. No sleep was achieved. Hyperventilation could not be performed. Photic stimulation remained unremarkable. EKG revealed normal sinus rhythm. No focal, lateralizing or epileptiform abnormalities were seen. No clinical or electrographic seizures were recorded. CONCLUSION: This EEG in awake and drowsy states is within normal limits.
[2016-10-15] MEDS: VITAMIN D 1,000 INTERNATIONAL UNITS TABLET PO SCH (08:19)
[2016-10-15] MEDS: CYANOCOBALAMIN 500 MCG TAB PO SCH (08:20)
[2016-10-15] MEDS: FLUTICASONE PROP 0.05% NASAL SPRAY 16 GM (FLONASE) SCH ×2 (08:20→21:54)
[2016-10-15] MEDS: OXYMETAZOLINE NASAL SPRAY (AFRIN) SCH ×2 (08:21→21:56)
--- NOTE | 2016-10-15 14:31 | IPN ---
DATE OF SERVICE: 10/15/2016 Ms. Stevens is feeling well today. Would like to go home. She has no complaints of chest pain or shortness of breath. She does think that the right side of her face may be slightly more swollen than it had been in the past. Temperature is 99.4, pulse 81, respiratory rate 20, blood pressure 143/63, 98% on room air. Intake and output (I and O) notable for a negative fluid balance of -870. She is awake, appropriately interactive. Has been walking in the hallway with no assistance, using her walker. Breathing is symmetrical. I-to-E ratio is 1:3. Heart is distant sounding. Normal S1, S2. Abdomen soft, doughy, nontender. Has no significant lower extremity edema. White cell count 4.2. Creatinine 0.67. Electroencephalogram (EEG) was reported yesterday as negative. My assessment is as follows: This is an 89-year-old who presented with orthostasis and syncope. The plan is as follows: 1. Orthostasis. We are weaning the patient's antihypertensives and accepting permissive hypertensive state. Demadex has been discontinued. Angiotensin receptor marly (ARB) has been cut in half. Will monitor overnight and possibly discharge as early as tomorrow. The patient has known stage I diastolic dysfunction and preserved left ventricular ejection fraction. Electroencephalogram (EEG) is normal. I am greatly appreciative of Dr. Nash's input in the patient's care. We have not started any antiepileptic drugs, as her EEG is normal. 2. The patient has a maxillary fracture. There is a plan for followup with ears, nose, and throat (ENT) next week. 3. The patient has a history of labile hypertension. I did discuss this case by phone with Dr. Franklin during the stay.
[2016-10-15] MEDS: LOSARTAN 50 MG TAB PO SCH (21:53)
[2016-10-16] VITALS (7 sets, daily range): BP systolic 131–182; BP diastolic 52–100
[2016-10-16 05:55] LABS: MEAN CORPUSCULAR HEMOGLOBIN 32.2 pg (27.0-33.0); MEAN CORPUSCULAR HGB CONC 33.9 g/dl (32.0-36.5); RED CELL DISTRIBUTION WIDTH 12.3 % (11.5-14.5); WHITE BLOOD COUNT 4.6 K/mm3 (4.0-10.0)
[2016-10-16 06:09] LABS: ANION GAP 8 MEQ/L (8-16); BLOOD UREA NITROGEN 12 MG/DL (7-18); CALCIUM LEVEL 8.3 MG/DL (8.8-10.2); CARBON DIOXIDE LEVEL 26 MEQ/L (21-32); CHLORIDE LEVEL 98 MEQ/L (98-107); CREATININE FOR GFR 0.57 MG/DL (0.55-1.02); GLOMERULAR FILTRATION RATE > 60.0 (>32); GLUCOSE, FASTING 80 MG/DL (83-110); POTASSIUM SERUM 4.2 MEQ/L (3.5-5.1); SODIUM LEVEL 132 MEQ/L (136-145)
[2016-10-16] MEDS: SLF 3 ML SYR IV SCH ×3 (06:30→21:04)
[2016-10-16] MEDS: LEVOTHYROXINE 0.125 MG TAB (125 MCG) PO SCH (06:30)
[2016-10-16] MEDS: VITAMIN D 1,000 INTERNATIONAL UNITS TABLET PO SCH (08:27)
[2016-10-16] MEDS: CYANOCOBALAMIN 500 MCG TAB PO SCH (08:27)
[2016-10-16] MEDS: FLUTICASONE PROP 0.05% NASAL SPRAY 16 GM (FLONASE) SCH ×2 (08:27→21:03)
[2016-10-16] MEDS: OXYMETAZOLINE NASAL SPRAY (AFRIN) SCH ×2 (08:27→21:03)
[2016-10-16] MEDS: ACETAMINOPHEN TAB 650MG DOSE (2X325MG) PO PRN ×2 (08:30→23:14)
--- NOTE | 2016-10-16 09:59 | REP ---
Clinical: Cough . Comparison: 10/11/2016 . Technique: PA and lateral. Findings: The mediastinum and cardiac silhouette are normal. The lung platt are clear and without acute consolidation, effusion, or pneumothorax. The skeletal structures are intact and normal. Impression: 1. No acute cardiopulmonary process. Signed by Aron Bermudez MD 10/16/2016 09:51 A
--- NOTE | 2016-10-16 10:12 | REP ---
CT HEAD WITHOUT CONTRAST: HISTORY: Headache. COMPARISON: 10/11/2016. Areas of decreased attenuation are present in the periventricular white matter. This represents small vessel ischemic disease. There is no intraparenchymal hemorrhage, mass or midline shift. The ventricular system and cortical sulci as well as subarachnoid space in the posterior fossa are dilated consistent with moderate volume loss. There is no extracerebral collection. The visualized sinuses are clear. IMPRESSION: 1. Small vessel ischemic disease. 2. Moderate volume loss. Signed by Neeraj Fritz MD 10/16/2016 10:21 A
--- NOTE | 2016-10-16 17:08 | IPN ---
DATE: 10/16/2016 Ms. Stevens had a good evening yesterday. She walked around the floor during the day yesterday. Unfortunately this morning, she had a short event where she had a feeling of head fullness and need to urinate and then a period of brief confusion. Now, during the course of my evaluation around 9 a.m., she appears to be at baseline. Temperature 98.6, pulse 91, respiratory rate 20, blood pressure 148/52, 97% on room air. Intake and output notable for a positive fluid balance of 500. Weight 45.6 kg with a body mass index of 17.8. She is awake, appropriately interactive, pleasantly conversant. She remembers me from previous encounters. Mucous membranes moist. Facies is grossly ecchymotic. Heart is in a regular rate and rhythm, no significant arrhythmia on monitor. Breathing is symmetrical, rested. Abdomen soft, doughy, nontender. White cell count 4.6, hemoglobin 11, sodium 132, creatinine 0.57. Repeat head CT unremarkable. Chest xray done today shows no acute process. My assessment is as follows: This is an 89-year-old who presented with orthostasis and syncope. Plan is as follows: 1. Orthostasis. I have discontinued her diuretic and cut her ARB in half. She is no longer orthostatic. She did have an unusual event today. I am unclear of the etiology. CT scan was negative. We will continue to monitor her clinically. 2. The patient has a maxillary fracture with plans to followup with otolaryngology (ENT) next week. 3. The patient has a history of labile hypertension. We are pursuing a course of more permissive hypertensive management.
[2016-10-16] MEDS ORDERED: LOSARTAN 50 MG TAB PO SCH ×2 (21:00)
[2016-10-17 04:00] VITALS: BP 140/65
[2016-10-17] MEDS: SLF 3 ML SYR IV SCH (05:32)
[2016-10-17] MEDS: LEVOTHYROXINE 0.125 MG TAB (125 MCG) PO SCH (05:32)
[2016-10-17 05:45] LABS: MEAN CORPUSCULAR HEMOGLOBIN 32.6 pg (27.0-33.0); MEAN CORPUSCULAR HGB CONC 34.3 g/dl (32.0-36.5); MEAN CORPUSCULAR VOLUME 95.1 fl (80.0-96.0); RED CELL DISTRIBUTION WIDTH 12.7 % (11.5-14.5); WHITE BLOOD COUNT 3.6 K/mm3 (4.0-10.0)
[2016-10-17 05:53] LABS: ANION GAP 10 MEQ/L (8-16); BLOOD UREA NITROGEN 14 MG/DL (7-18); CALCIUM LEVEL 8.2 MG/DL (8.8-10.2); CARBON DIOXIDE LEVEL 24 MEQ/L (21-32); CHLORIDE LEVEL 102 MEQ/L (98-107); CREATININE FOR GFR 0.55 MG/DL (0.55-1.02); GLOMERULAR FILTRATION RATE > 60.0 (>32); GLUCOSE, FASTING 83 MG/DL (83-110); POTASSIUM SERUM 4.1 MEQ/L (3.5-5.1); SODIUM LEVEL 136 MEQ/L (136-145)
[2016-10-17 07:53] VITALS: BP 163/72
[2016-10-17] MEDS: VITAMIN D 1,000 INTERNATIONAL UNITS TABLET PO SCH (08:08)
[2016-10-17] MEDS: OXYMETAZOLINE NASAL SPRAY (AFRIN) SCH (08:08)
[2016-10-17] MEDS: CYANOCOBALAMIN 500 MCG TAB PO SCH (08:08)
[2016-10-17] MEDS: ACETAMINOPHEN TAB 650MG DOSE (2X325MG) PO PRN (08:09)
[2016-10-17] MEDS: FLUTICASONE PROP 0.05% NASAL SPRAY 16 GM (FLONASE) SCH (08:09)
[2016-10-17] MEDS ORDERED: LOSA50TA20 PO (08:53)
[2016-10-17] MEDS ORDERED: LEVE500T64 PO (08:53)
--- NOTE | 2016-10-17 16:35 | DSES ---
DATE OF ADMISSION: 10/13/2016 DATE OF DISCHARGE: 10/17/2016 SPECIALISTS INVOLVED IN STAY: Dr. Ibarra PROCEDURES: No procedures performed during her stay. DISCHARGE DIAGNOSES: 1. Orthostatic hypotension. 2. Syncope. 3. Possible seizure disorder. 4. Maxillary fracture. 5. Labile hypertension. 6. Hypothyroidism. SUMMARY OF PRESENTATION: This is an 89-year-old who presented with a syncopal event, resulting in scalp hematoma and fractures of the lateral wall of the right orbital and anterior and posterior lateral wall of the right maxillary sinus. Patient was admitted to the hospitalist service. Was thought to have experienced orthostasis in the setting of acute diarrhea as an outpatient with the use of diuretics and angiotensin receptor marly (ARB). Her diuretic was discontinued. Her ARB was cut in half. Case was discussed in general with the patient's outpatient provider. A consultation was obtained from neurology. Electroencephalogram (EEG) was done, which was within normal limits, although during the course of her stay she did suffer an unusual event, where she was staring, confused, had some automated behavior, and it was elected to start Keppra at discharge. I have also discussed the fact that she should probably no longer drive at the time of discharge. On the day of discharge, temperature is 98.8, pulse 96, respiratory rate 19, blood pressure 163/72, 96% on room air. She is awake, alert, pleasant, easily conversant. She has facial bruising. Breathing is symmetrical and rested. Heart is in a regular rate and rhythm. Abdomen is soft, doughy, nontender. White cell count is 3.6, hemoglobin 10.1. Creatinine 0.55. DISCHARGE INSTRUCTIONS: Include the following: Followup with Dr. Franklin October 21 at 9:30 a.m., Marilin Moss October 23 at 11 a.m., Dr. Vargas's office will call the patient with appointment information. Activity and diet as tolerated. I am giving her instructions to take her daily weight and blood pressure each morning and record and take those results to Dr. Franklin. Starting Keppra ER 500 mg by mouth twice daily, losartan 50 mg by mouth daily at bedtime, continuing artifical tears, continuing aspirin, continuing vitamin D supplement, continuing vitamin B12 supplement, fish oil 1000 mg by mouth daily, Synthroid 125 mcg by mouth six times a week, mometasone nasally twice daily, PreserVision capsule, two capsules by mouth daily, psyllium one packet by mouth daily, Simbrinza to each eye twice daily, Travatan-Z one drop each eye daily at bedtime. We have discontinued her torsemide and discontinued her 100 mg dose of losartan. I did discuss this case at bedside with the patient's son.
== END 2016-10-17 12:09 | disposition home or self-care (01) | DRG 312 ==
LOC: EDBD 10:56 → M ED 13:34 → M ED INP 14:37 → M PCU 16:16 → OBSVTOIN 10-13 10:48
PROVIDERS: ADMIT Internal Medicine; ATTEND Internal Medicine
DX: I95.1 Orthostatic hypotension (principal); S02.401A Maxillary fracture, unspecified side, initial encounter for closed fracture; S02.80XA Fracture of other specified skull and facial bones, unspecified side, initial encounter for closed fracture; S00.03XA Contusion of scalp, initial encounter; I10 Essential (primary) hypertension; E03.9 Hypothyroidism, unspecified; W18.12XA Fall from or off toilet with subsequent striking against object, initial encounter; G40.909 Epilepsy, unspecified, not intractable, without status epilepticus; Y92.002 Bathroom of unspecified non-institutional (private) residence as the place of occurrence of the external cause; Z79.82 Long term (current) use of aspirin; Z79.899 Other long term (current) drug therapy; Z88.0 Allergy status to penicillin; Z88.1 Allergy status to other antibiotic agents; R19.7 Diarrhea, unspecified

== ENCOUNTER → 2016-10-27 | Outpatient (REF) | payer MEDICARE ==
[~2016-10-27] MED LIST changes: +FISH100049 PO; +LEVE500T64 PO; +LOSA50TA20 PO; +META48.54 PO; +SIMB1SUS OU; +TORS20TA2 PO
== END ==
LOC: M LABDRAWC 16:34
PROVIDERS: ATTEND Physician Assistant Medical
DX: R55 Syncope and collapse (principal)